=== PATIENT | male | born 1970 | race Caucasian/White ===

== ENCOUNTER 2018-05-02 14:51 | Observation (INO) | payer BC, SELFPAY ==
[2018-05-02 15:31] LABS: Absolute Lymphocytes (CBC) 3.3 K/uL (0.7-4.9); Absolute Monocytes 0.7 K/uL (0.1-1.3); Absolute Neutrophil 4.7 K/uL (1.8-8.0); Basophils % 0.7 % (0-1.3); Eosinophils % 4.3 % (0-4.4); Hematocrit 44.9 % (39.6-49.0); Lymphocytes % 35.9 % (15.3-44.8); MCH 31.8 pg (27.0-35.0); MCV 92.5 fL (80-100); MPV 9.5 fL (7.6-11.3); Monocytes % 7.5 % (3.3-12.3); RBC Red Blood Cell Count 4.85 M/uL (4.33-5.43)
--- NOTE | 2018-05-02 15:54 | RAD REPORT ---
EXAM DESCRIPTION: RAD - Chest Single View - 05/02/2018 3:38 pm CLINICAL HISTORY: Chest pain. COMPARISON: 07/27/2013 FINDINGS: Portable technique limits examination quality. The lungs are grossly clear. The heart is normal in size. No displaced fractures. IMPRESSION: No acute intrathoracic process suspected.
[2018-05-02 16:07] LABS: Albumin 4.3 g/dL (3.2-5.5); Bilirubin Total 0.7 mg/dL (0.3-1.2)
[2018-05-02] MEDS ORDERED: ASPIRIN 81 MG CHEWABLE TABLET ONE (16:28)
--- NOTE | 2018-05-02 17:01 | EKG ---
Test Date: 2018-05-02 Test Time: 15:03:27 Mirror Installer: ISHMAEL/Bridger MEASUREMENT RESULTS: Intervals: Rate: 78 NH: 150 QRSD: 88 QT: 370 QTc: 421 [place]: P: 64 NH: 150 QRS: 16 T: 54 INTERPRETIVE STATEMENTS: Normal sinus rhythm Normal ECG Compared to ECG 07/27/2013 23:38:10 Sinus bradycardia no longer present Electronically Signed On 05-02-18 16:59:58 CDT by Kaden Hicks
[2018-05-02] MEDS ORDERED: ONDANSETRON 4 MG/2 ML VIAL IV PRN (18:08)
[2018-05-02] MEDS ORDERED: ALBUTEROL 2.5 MG/3 ML NEB SOL NEB PRN (18:08)
[2018-05-02] MEDS ORDERED: NITROGLYCERIN 0.4 MG/TAB SL PRN (18:08)
[2018-05-02] MEDS ORDERED: IPRATROPIUM BROM 0.5MG/2.5ML NEB PRN (18:08)
[2018-05-02] MEDS ORDERED: ACETAMINOPHEN 500 MG TAB PO PRN (18:08)
--- NOTE | 2018-05-02 18:18 | P.HP ---
Certification for Inpatient Patient admitted to: Observation With expected LOS: <2 Midnights Patient will require the following post-hospital care: None Practitioner: I am a practitioner with admitting privileges, knowledge of patient current condition, hospital course, and medical plan of care. Services: Services provided to patient in accordance with Admission requirements found in Title 42 Section 412.3 of the Code of Federal Regulations Patient History Date of Service: 05/02/18 Primary Care Provider: Dr. Mayer([place], [place]) Reason for admission: Chest pain History of Present Illness: 48-year-old male presented emergency room with chest pain. Patient reported chest pain today. It started about 10:00 a.m.. It was a constant pressure. He was in the substernal region. No radiation noted. He denied any nausea, vomiting or lightheadedness. Patient with history of CAD with stent placed 6 years ago. He also has a history of hypertension and hyperlipidemia. He has not followed up with cardiology in over 5 years. In the ER, blood pressure stable. CBC, BMP unremarkable. Initial cardiac enzymes within normal range. Chest x-ray unremarkable. EKG showed no significant ST changes. Due to the nature of his symptoms and history patient was admitted for observation. When I saw the patient the ER, he was reluctant to stay but due to his risk factors he decided to stay Allergies No Known Allergies Allergy (Unverified 05/02/12 08:56) Home Medications: Aspirin 325 mg PO DAILY #0 tablet 05/04/12 Clopidogrel Bisulfate [Plavix*] 75 mg PO DAILY #0 tablet 05/04/12 Metoprolol Tartrate [Lopressor] 50 mg PO BID #0 tablet 05/04/12 Pravastatin [Pravachol*] 40 mg PO BEDTIME 07/27/13 - Past Medical/Surgical History Diabetic: No -: CAD, stent -: Hyperlipidemia -: HTN -: Tobacco abuse -: Alcohol use -: Right elbow (reconstruction) Psychosocial/ Personal History: The patient is . He has 2 children. He works construction - Family History Mother -: Cancer (Lymphoma) Father -: Cancer (Esophageal cancer) - Social History Smoking Status: Heavy Tobacco smoker (>10 cigarettes/day) Counseled patient to stop smoking for: less than 10 minutes Smoking therapy provided: Yes Patient receptive to therapy: Yes Alcohol use: Yes CD- Drugs: No Caffeine use: Yes Place of Residence: Home Review of Systems General: As per HPI Eyes: Unremarkable ENT: Unremarkable Respiratory: Unremarkable Cardiovascular: Chest Pain, As per HPI Gastrointestinal: Unremarkable Genitourinary: Unremarkable Musculoskeletal: Unremarkable Integumentary: Unremarkable Neurological: Unremarkable Lymphatics: Unremarkable Physical Examination - Physical Exam General: Alert, In no apparent distress, Oriented x3, Cooperative HEENT: Atraumatic, Normocephalic, PERRLA, Mucous membr. moist/pink Neck: Supple, No Thyromegaly Respiratory: Clear to auscultation bilaterally, Normal air movement Cardiovascular: Normal pulses, Regular rate/rhythm Gastrointestinal: Normal bowel sounds, Soft and benign, Non-distended, No tenderness, No masses, No rebound, No guarding Musculoskeletal: No erythema, No tenderness, No warmth Integumentary: No tenderness/swelling, No erythema, No warmth, No cyanosis Neurological: Normal speech, Normal strength at 5/5 x4 extr, Normal tone, Normal affect Lymphatics: No axilla or inguinal lymphadenopathy - Studies Laboratory Data (last 24 hrs) 05/02/18 15:15: Sodium 138, Potassium 4.0, BUN 14, Creatinine 0.92, Glucose 108 , Magnesium 2.0, Total Bilirubin 0.7, AST 21, ALT 27, Alkaline Phosphatase 80 05/02/18 15:15: B-Natriuretic Peptide 52 05/02/18 15:15: WBC 9.1, Hgb 15.4, Hct 44.9, Plt Count 189 Assessment and Plan - Problems (Diagnosis) (1) Chest pain Current Visit: Yes Status: Acute Plan: Will monitor cardiac enzymes. Will check echocardiogram. Will keep the patient NPO as the patient will be evaluated by Cardiology. Patient may require cardiac evaluation. Previous stent placed 6 years ago. He has not followed up with Cardiology in over 5 years. Qualifiers: Chest pain type: unspecified Qualified Code(s): R07.9 - Chest pain, unspecified (2) Hypertension Current Visit: Yes Status: Chronic Plan: Will continue with medication. Qualifiers: Hypertension type: essential hypertension Qualified Code(s): I10 - Essential (primary) hypertension (3) Hyperlipidemia Current Visit: Yes Status: Chronic Plan: Continue with medication. Will check fasting lipid panel. Qualifiers: Hyperlipidemia type: unspecified Qualified Code(s): E78.5 - Hyperlipidemia , unspecified (4) CAD (coronary artery disease) Current Visit: Yes Status: Chronic Plan: Will continue with his Plavix. DVT prophylaxis also started. (5) Tobacco abuse Current Visit: Yes Status: Chronic Plan: Will provide nicotine patch. Cessation education provided. (6) Alcohol use Current Visit: Yes Status: Chronic Plan: Cessation education provided. Discharge Plan: Home Plan to discharge in: 24 Hours - Advance Directives Does patient have a Living Will: No Does patient have a Durable POA for Healthcare: No - Code Status/Comfort Care Code Status Assessed: Yes Time Spent Managing Pts Care (In Minutes): 55
--- NOTE | 2018-05-02 18:29 | ER ---
Nurse's Notes [facility] Name: Zeinab Hyde Age: 48 yrs Sex: Male : 1970 Arrival Date: 05/02/2018 Time: 14:55 Bed 4 Private MD: None, None Diagnosis: Other chest pain Presentation: 05/02 15:02 Presenting complaint: Patient states: started having midsternal CP this morning around iw 10, described as indigestion, pressure, constant, not radiating, has hx of DE X 6 years ago, also has numbness to right side of face since Wednesday. Transition of care: patient was not received from another setting of care. Onset of symptoms was May 02, 2018. Risk Assessment: Do you want to hurt yourself or someone else? Patient reports no desire to harm self or others. Initial Sepsis Screen: Does the patient meet any 2 criteria? No. Patient's initial sepsis screen is negative. Does the patient have a suspected source of infection? No. Patient's initial sepsis screen is negative. Care prior to arrival: None. 15:02 Method Of Arrival: Wheelchair iw 15:02 Acuity: KAM 2 iw Historical: - Allergies: 16:46 No Known Allergies; ph - PMHx: 16:46 Hypertension; Myocardial infarction; ph - PSHx: 16:46 Heart stents; ph - Immunization history:: Adult Immunizations unknown. - Social history:: Smoking status: Patient uses tobacco products, smokes one pack cigarettes per day. - Ebola Screening: : No symptoms or risks identified at this time. Screenin:49 Abuse screen: Denies threats or abuse. Denies injuries from another. Nutritional ph screening: No deficits noted. Tuberculosis screening: No symptoms or risk factors identified. Fall Risk None identified. Assessment: 15:11 General: Appears in no apparent distress. uncomfortable, Behavior is calm, cooperative, ph appropriate for age, Denies fever, feeling ill. 15:11 Pain: Complains of pain in mid-sternal area Pain does not radiate. Quality of pain is ph described as pressure, Pain began 5 hours ago. Cardiovascular: Reports chest pain, Denies nausea, shortness of breath, Capillary refill < 3 seconds Patient's skin is warm and dry. Rhythm is sinus rhythm. Respiratory: Airway is patent Respiratory effort is even, unlabored, Respiratory pattern is regular, symmetrical, Denies shortness of breath. GI: No signs and/or symptoms were reported involving the gastrointestinal system. 16:46 Reassessment: Patient appears in no apparent distress at this time. Patient and/or ph family updated on plan of care and expected duration. Pain level reassessed. Patient is alert, oriented x 3, equal unlabored respirations, skin warm/dry/pink. pt resting quietly, awaiting reevaluation by ERP. Derm: Skin is intact, is healthy with good turgor, Skin is pink, warm \T\ dry. Musculoskeletal: Circulation, motion, and sensation intact. Range of motion: intact in all extremities. 18:09 Reassessment: Patient appears in no apparent distress at this time. Patient and/or ph family updated on plan of care and expected duration. Pain level reassessed. Patient is alert, oriented x 3, equal unlabored respirations, skin warm/dry/pink. Pt resting quietly, family at bedside, awaiting admit orders and room assignment, VSS. 18:53 Reassessment: Patient appears in no apparent distress at this time. No changes from hb previously documented assessment. Patient and/or family updated on plan of care and expected duration. Pain level reassessed. Patient is alert, oriented x 3, equal unlabored respirations, skin warm/dry/pink. 19:51 Reassessment: Patient aware of pending admission. Pain: Complains of pain in chest Pain lp1 currently is 2 out of 10 on a pain scale. Cardiovascular: Patient's skin is warm and dry. Respiratory: Respiratory effort is even, unlabored. Derm: Skin is pink, warm \T\ dry. Vital Signs: 15:10 BP 96 / 75; Pulse 80; Resp 16; Pulse Ox 98% on R/A; ph 16:30 BP 92 / 58; Pulse 63; Resp 16; Pulse Ox 100% on R/A; ph 18:10 BP 116 / 96; Pulse 60; Resp 16; Pulse Ox 99% on R/A; ph 19:35 BP 101 / 67; Pulse 69; Resp 18; Temp 99.0; Pulse Ox 100% on R/A; ak1 ED Course: 14:55 Patient arrived in ED. mr 14:55 None, None is Private Physician. mr 14:56 Peter Cavazos MD is Attending Physician. ps1 14:56 Flory Aguilar, RN is Primary Nurse. ph 15:04 Triage completed. iw 15:04 Initial lab(s) drawn, by me. Inserted saline lock: 22 gauge in left antecubital area, jb1 using aseptic technique. Blood collected. 15:08 EKG done, by body and frame technician. reviewed by Peter Cavazos MD. tc 15:39 XRAY Chest (1 view) In Process Unspecified. EDMS 15:40 X-ray completed. Portable x-ray completed in exam room. Patient tolerated procedure kc2 well. 16:46 Arm band placed on. ph 16:50 No provider procedures requiring assistance completed. Patient maintains SpO2 ph saturation greater than 95% on room air. 16:50 Patient has correct armband on for positive identification. Placed in gown. Bed in low ph position. Call light in reach. Side rails up X 1. cafeteria monitor on. Pulse ox on. NIBP on. Warm blanket given. 18:27 Lamont Alfaro DO is Hospitalizing Provider. ps1 19:34 Patient admitted, IV remains in place. ak1 20:23 Primary Nurse role handed off by Flory Aguilar, BETINA rg2 20:26 Lea Higuera, RN is Primary Nurse. lp1 Administered Medications: 16:45 Drug: Aspirin 325 mg Route: PO; ph 19:52 Follow up: Response: No adverse reaction lp1 Outcome: 18:28 Decision to Hospitalize by Provider. ps1 19:34 Condition: stable ak1 19:34 Instructed on the need for admit. 20:10 Admitted to Tele accompanied by [facility], via wheelchair, room 422, with chart, Report lp1 called to BETINA Ngo 20:27 Patient left the ED. lp1 Signatures: Dispatcher [employer] EDMS Janes Kemp jb1 Luisito Kiser rg2 Karena Tian Irene, BETINA MOFFETT iw Lea Higuera RN RN lp1 Christine Garber, account engineer EKG Ttc Betsy Lyle RN RN ak1 Flory Aguilar, BETINA MOFFETT Jessica Alvarez RN RN hb Carr, Kelsie kc2 Peter Cavazos MD MD ps1 Corrections: (The following items were deleted from the chart) 15:17 15:11 General: Appears in no apparent distress. uncomfortable, Behavior is calm, ph cooperative, appropriate for age, ph
--- NOTE | 2018-05-02 18:29 | EDPHYS ---
Physician Documentation [facility] Name: Zienab Hyde Age: 48 yrs Sex: Male : 1970 Arrival Date: 05/02/2018 Time: 14:55 Bed 4 Private MD: None, None ED Physician Peter Cavazos HPI: 05/02 15:12 This 48 yrs old Male presents to ER via Wheelchair with complaints of Chest ps1 Pain. 15:12 The patient or guardian reports chest pain that is located primarily in the substernal ps1 area. Onset: at 10:00. The pain does not radiate. Associated signs and symptoms: Pertinent positives: right jaw face numbness. The chest pain is described as sharp, squeezing, stabbing. Duration: The patient or guardian reports a single episode, that is still ongoing, and unchanged. Historical: - Allergies: 16:46 No Known Allergies; ph - PMHx: 16:46 Hypertension; Myocardial infarction; ph - PSHx: 16:46 Heart stents; ph - Immunization history:: Adult Immunizations unknown. - Social history:: Smoking status: Patient uses tobacco products, smokes one pack cigarettes per day. - Ebola Screening: : No symptoms or risks identified at this time. ROS: 15:12 Constitutional: Negative for fever, chills, and weight loss, Eyes: Negative for injury, ps1 pain, redness, and discharge, Neck: Negative for injury, pain, and swelling. 15:12 Respiratory: Negative for shortness of breath, cough, wheezing, and pleuritic chest pain, Abdomen/GI: Negative for abdominal pain, nausea, vomiting, diarrhea, and constipation, MS/Extremity: Negative for injury and deformity, Skin: Negative for injury, rash, and discoloration, Neuro: Negative for headache, weakness, numbness, tingling, and seizure. 15:12 Cardiovascular: Positive for chest pain. Exam: 15:12 Constitutional: This is a well developed, well nourished patient who is awake, alert, ps1 and in no acute distress. Head/Face: Normocephalic, atraumatic. Eyes: Pupils equal round and reactive to light, extra-ocular motions intact. Lids and lashes normal. Conjunctiva and sclera are non-icteric and not injected. ENT: Nares patent. No nasal discharge, no septal abnormalities noted. Tympanic membranes are normal and external auditory canals are clear. Oropharynx with no redness, swelling, or masses, exudates, or evidence of obstruction, uvula midline. Mucous membranes moist. Chest/axilla: Normal chest wall appearance and motion. Nontender with no deformity. No lesions are appreciated. Cardiovascular: Regular rate and rhythm. No gallops, murmurs, or rubs. Normal PMI, no JVD. No pulse deficits. Respiratory: Lungs have equal breath sounds bilaterally, clear to auscultation and percussion. No rales, rhonchi or wheezes noted. No increased work of breathing, no retractions or nasal flaring. Abdomen/GI: Soft, non-tender, with normal bowel sounds. No distension or tympany. No guarding or rebound. No evidence of tenderness throughout. Skin: Warm, dry with normal turgor. Normal color with no rashes, no lesions, and no evidence of cellulitis. MS/ Extremity: Pulses equal, no cyanosis. Neurovascular intact. Full, normal range of motion. Neuro: Awake and alert, GCS 15, oriented to person, place, time, and situation. Cranial nerves II-XII grossly intact. Sensory grossly intact. Vital Signs: 15:10 BP 96 / 75; Pulse 80; Resp 16; Pulse Ox 98% on R/A; ph 16:30 BP 92 / 58; Pulse 63; Resp 16; Pulse Ox 100% on R/A; ph 18:10 BP 116 / 96; Pulse 60; Resp 16; Pulse Ox 99% on R/A; ph 19:35 BP 101 / 67; Pulse 69; Resp 18; Temp 99.0; Pulse Ox 100% on R/A; ak1 MDM: 15:11 Patient medically screened. ps1 18:28 Data reviewed: vital signs, nurses notes, lab test result(s), EKG, radiologic studies. ps1 05/02 15:06 Order name: CBC with Diff; Complete Time: 15:48 ps1 05/02 15:06 Order name: BNP; Complete Time: 15:58 ps1 05/02 15:06 Order name: Magnesium; Complete Time: 16:10 ps1 05/02 15:06 Order name: Troponin (emerg Dept Use Only); Complete Time: 15:58 ps1 05/02 15:06 Order name: CMP; Complete Time: 16:10 ps1 06/04 18:13 Order name: Urinalysis EDMS 05/02 18:13 Order name: Basic Metabolic Panel EDMS 05/02 18:13 Order name: Basic Metabolic Panel EDMS 05/02 18:13 Order name: Basic Metabolic Panel EDMS 05/02 18:13 Order name: Basic Metabolic Panel EDMS 05/02 18:13 Order name: CBC with Automated Diff EDMS / 18:13 Order name: CBC with Automated Diff EDMS / 18:13 Order name: CBC with Automated Diff EDMS / 18:13 Order name: CBC with Automated Diff EDMS / 18:13 Order name: CKMB Creatine Kinase MB EDMS 05/02 18:13 Order name: CKMB Creatine Kinase MB EDMS 05/02 18:13 Order name: CKMB Creatine Kinase MB EDMS 05/02 18:13 Order name: Creatine Phosphokinase EDMS 05/02 18:13 Order name: Creatine Phosphokinase EDMS 05/02 18:13 Order name: Creatine Phosphokinase EDMS 05/02 18:13 Order name: Lipid Profile EDMS 05/02 18:13 Order name: Lipid Profile EDMS / 18:13 Order name: Magnesium EDMS / 18:13 Order name: Magnesium EDMS 05/02 18:13 Order name: Magnesium EDMS / 18:13 Order name: Magnesium EDMS / 18:13 Order name: Troponin I EDMS 05/02 18:13 Order name: Troponin I EDMS 05/02 18:13 Order name: Troponin I EDMS 05/02 18:13 Order name: Thyroid Stimulating Hormone EDMS / 15:06 Order name: XRAY Chest (1 view); Complete Time: 15:58 ps1 05/02 15:06 Order name: EKG; Complete Time: 15:06 ps1 05/02 15:06 Order name: Cardiac monitoring; Complete Time: 15:38 ps1 05/02 15:06 Order name: EKG - Nurse/Tech; Complete Time: 15:38 ps1 05/02 15:06 Order name: IV Saline Lock; Complete Time: 15:38 ps1 05/02 15:06 Order name: Labs collected and sent; Complete Time: 15:38 ps1 05/02 15:06 Order name: O2 Per Protocol; Complete Time: 15:38 ps1 05/02 15:06 Order name: O2 Sat Monitoring; Complete Time: 15:38 ps1 05/02 18:13 Order name: CONS Physician Consult EDTX 05/02 18:13 Order name: NPO EDTX 05/02 18:13 Order name: Echo with Doppler EDTX 05/02 18:13 Order name: Thyroid Stimulating Hormone EDTX 05/02 18:29 Order name: Diet Heart Healthy; Complete Time: 18:30 jb1 Administered Medications: 16:45 Drug: Aspirin 325 mg Route: PO; ph 19:52 Follow up: Response: No adverse reaction lp1 Disposition: 05/02/18 18:28 Hospitalization ordered by Lamont Alfaro for Observation. Preliminary diagnosis is Other chest pain. - Bed requested for Telemetry/MedSurg (observation). - Status is Observation. lp1 - Condition is Stable. - Problem is new. - Symptoms are unchanged. UTI on Admission? No Signatures: Dispatcher [employer] EDLatesha Charles RN RN kl Pena, Laura, RN RN lp1 Flory Aguilar RN RN Peter Cavazos MD MD ps1 Corrections: (The following items were deleted from the chart) 19:21 18:28 Hospitalization Ordered by Lamont Alfaro DO for Observation. Preliminary kl diagnosis is Other chest pain. Bed requested for Telemetry/MedSurg (observation). Status is Observation. Condition is Stable. Problem is new. Symptoms are unchanged. UTI on Admission? No. ps1 20:27 19:21 05/02/2018 18:28 Hospitalization Ordered by Lamont Alfaro DO for Observation. lp1 Preliminary diagnosis is Other chest pain. Bed requested for Telemetry/MedSurg (observation). Status is Observation. Condition is Stable. Problem is new. Symptoms are unchanged. UTI on Admission? No. kl
[2018-05-02] MEDS ORDERED: ATORVASTATIN 80 MG TAB PO SCH (21:00)
[2018-05-03 01:14] VITALS: BMI 26.4
[2018-05-03 02:33] LABS: CKMB Creatine Kinase MB 0.7 ng/ml (0.3-4.0)
[2018-05-03 05:40] LABS: Urine Appearance CLEAR; Urine Bilirubin NEGATIVE (NEG); Urine Blood NEGATIVE (NEG); Urine Color YELLOW; Urine Glucose NEGATIVE (NEG); Urine Protein NEGATIVE (NEG); Urine Specific Gravity 1.015 (1.005-1.030)
[2018-05-03 05:41] LABS: Urine Microscopic Reflex NO UMIC
[2018-05-03] MEDS ORDERED: METOPROLOL TAR 25 MG TAB PO SCH (06:00)
[2018-05-03] MEDS ORDERED: PANTOPRAZOLE 40MG TABLET PO SCH (06:30)
[2018-05-03 06:37] LABS: Absolute Lymphocytes (CBC) 3.4 K/uL (0.7-4.9); Absolute Monocytes 0.7 K/uL (0.1-1.3); Absolute Neutrophil 4.9 K/uL (1.8-8.0); Basophils % 0.5 % (0-1.3); Eosinophils % 4.5 % (0-4.4); Hematocrit 41.1 % (39.6-49.0); Lymphocytes % 35.8 % (15.3-44.8); MCH 31.8 pg (27.0-35.0); MCV 92.7 fL (80-100); MPV 9.7 fL (7.6-11.3); Monocytes % 7.6 % (3.3-12.3); RBC Red Blood Cell Count 4.43 M/uL (4.33-5.43)
[2018-05-03 07:16] LABS: BUN Blood Urea Nitrogen 12 mg/dL (6-20); Bicarbonate 27 mEq/L (21-31); Glucose Level 126 mg/dL (65-120); HDL Cholesterol 31 mg/dL (27-67); LDL Cholesterol, Calculated 47 (<130); Potassium 4.6 mEq/L (3.6-5.0); Sodium Level 139 mEq/L (135-145); Thyroid Stimulating Hormone 3.05 uIU/mL (0.34-5.60)
[2018-05-03] MEDS ORDERED: REGADENOSON 0.4 MG/5 ML SYR IV ONE (07:50)
[2018-05-03] MEDS ORDERED: NICOTINE 21 MG/PAT TD SCH (09:00)
[2018-05-03] MEDS ORDERED: ENOXAPARIN 40 MG/0.4 ML SQ SCH (09:00)
[2018-05-03] MEDS ORDERED: CLOPIDOGREL 75 MG TABLET PO SCH (09:00)
[2018-05-03] MEDS ORDERED: ASPIRIN EC 81 MG TAB PO SCH (09:00)
--- NOTE | 2018-05-03 10:39 | P.DS ---
Admission Date: 05/02/18 Discharge Date: 05/03/18 Primary Care Provider: Dr. Mayer([place], [place]) Disposition: ROUTINE DISCHARGE Discharge Condition: GOOD Reason for Admission: Chest pain Consultations: Cardiology-Dr. Hicks/Dr. Brewster Procedures: Cardiac stress test: No stress-induced ischemia noted. Ejection fraction 48% - Problems (1) Chest pain Onset Date: 05/03/18 Current Visit: Yes Status: Acute Qualifiers: Chest pain type: unspecified Qualified Code(s): R07.9 - Chest pain, unspecified (2) Hyperlipidemia Onset Date: 05/03/18 Current Visit: Yes Status: Chronic Qualifiers: Hyperlipidemia type: unspecified Qualified Code(s): E78.5 - Hyperlipidemia , unspecified (3) CAD (coronary artery disease) Onset Date: 05/03/18 Current Visit: Yes Status: Chronic Qualifiers: Coronary Disease-Associated Artery/Lesion type: unspecified vessel or lesion type [place] vs. transplanted heart: unspecified whether [place] or transplanted heart Associated angina: angina presence unspecified Qualified Code(s): I25.10 - Atherosclerotic heart disease of [place] coronary artery without angina pectoris (4) Tobacco abuse Onset Date: 05/03/18 Current Visit: Yes Status: Chronic (5) Alcohol use Onset Date: 05/03/18 Current Visit: Yes Status: Chronic (6) GERD (gastroesophageal reflux disease) Current Visit: Yes Status: Suspected Qualifiers: Esophagitis presence: esophagitis presence not specified Qualified Code(s) : K21.9 - Gastro-esophageal reflux disease without esophagitis Brief History of Present Illness: 48-year-old male presented emergency room with chest pain. Patient reported chest pain today. It started about 10:00 a.m.. It was a constant pressure. He was in the substernal region. No radiation noted. He denied any nausea, vomiting or lightheadedness. Patient with history of CAD with stent placed 6 years ago. He also has a history of hypertension and hyperlipidemia. He has not followed up with cardiology in over 5 years. In the ER, blood pressure stable. CBC, BMP unremarkable. Initial cardiac enzymes within normal range. Chest x-ray unremarkable. EKG showed no significant ST changes. Due to the nature of his symptoms and history patient was admitted for observation. When I saw the patient the ER, he was reluctant to stay but due to his risk factors he decided to stay Hospital Course: Patient did well in the course of his stay. Chest pain resolved. Cardiac enzymes unremarkable. Patient evaluated by Cardiology. Cardiology recommended cardiac stress test. Cardiac stress test showed no stress-induced ischemia. Ejection fraction 48%. At discharge patient will continue with Plavix 75 mg 1 pill daily. Recommendation is for the patient follow up with cardiology as an outpatient to further monitor. Patient has hyperlipidemia. Lipid panel remains within normal range. LDL 47. At discharge patient will continue with Lipitor 80 mg daily. Patient has history of tobacco and alcohol use. Tobacco and alcohol cessation education will be provided. Patient may have underlying GERD. Recommendation is for the patient to continue with Protonix 40 mg 1 pill once daily. Patient may benefit with GI evaluation as an outpatient. Vital Signs/Physical Exam: Temp Pulse Resp BP Pulse Ox 98 F 66 12 107/74 95 05/03/18 04:00 05/03/18 06:00 05/03/18 04:00 05/03/18 06:00 05/03/18 04:00 General: Alert, In no apparent distress, Oriented x3, Cooperative HEENT: Atraumatic Neck: Supple Respiratory: Clear to auscultation bilaterally, Normal air movement Cardiovascular: Normal pulses, Regular rate/rhythm Gastrointestinal: Normal bowel sounds, Soft and benign, Non-distended, No tenderness, No masses, No rebound, No guarding Musculoskeletal: No erythema, No tenderness, No warmth Integumentary: No tenderness/swelling, No erythema, No warmth, No cyanosis Neurological: Normal speech, Normal strength at 5/5 x4 extr, Normal tone, Normal affect Laboratory Data at Discharge: WBC 9.5 K/uL (4.3-10.9) 05/03/18 05:36 Hgb 14.1 g/dL (13.6-17.9) 05/03/18 05:36 Hct 41.1 % (39.6-49.0) 05/03/18 05:36 Plt Count 175 K/uL (152-406) 05/03/18 05:36 Sodium 139 mEq/L (135-145) 05/03/18 05:36 Potassium 4.6 mEq/L (3.6-5.0) 05/03/18 05:36 BUN 12 mg/dL (6-20) 05/03/18 05:36 Creatinine 0.87 mg/dL (0.61-1.24) 05/03/18 05:36 Glucose 126 mg/dL (65-120) H 05/03/18 05:36 Magnesium 2.0 mg/dL (1.8-2.5) 05/03/18 05:36 Total Bilirubin 0.7 mg/dL (0.3-1.2) 05/02/18 15:15 AST 21 IU/L (10-42) 05/02/18 15:15 ALT 27 IU/L (10-60) 05/02/18 15:15 Alkaline Phosphatase 80 IU/L (42-121) 05/02/18 15:15 Troponin I < 0.03 ng/mL (<0.03) 05/03/18 01:24 B-Natriuretic Peptide 52 pg/ml (<=100) 05/02/18 15:15 Triglycerides 53 mg/dL (35-160) 05/03/18 05:36 Cholesterol 89 mg/dL (<200) 05/03/18 05:36 HDL Cholesterol 31 mg/dL (27-67) 05/03/18 05:36 Cholesterol/HDL Ratio 2.87 05/03/18 05:36 Home Medications: Atorvastatin Calcium [Lipitor] 80 mg PO BEDTIME 05/02/18 Clopidogrel Bisulfate [Plavix*] 75 mg PO BEDTIME 05/02/18 Nitroglycerin [Nitrostat*] 0.4 mg SL UD PRN #30 tab 05/03/18 Pantoprazole [Protonix Tab*] 40 mg PO DAILYAC #30 tab 05/03/18 New Medications: Nitroglycerin [Nitrostat*] 0.4 mg SL UD PRN #30 tab PRN Reason: Chest Pain Pantoprazole [Protonix Tab*] 40 mg PO DAILYAC #30 tab Patient Discharge Instructions: 1. Patient will need a follow up with his PCP in 1 week to follow up this hospitalization. 2. Patient presented with chest pain. Cardiac enzymes unremarkable. Patient seen and evaluated by Cardiology. Cardiac stress test done. It showed no stress-induced ischemia. Ejection fraction 48%. At discharge patient will continue with Plavix 75 mg 1 pill once daily. Recommendation is for the patient follow up with cardiology in 2-4 weeks to monitor his progress. 3. Patient has hyperlipidemia. Patient will continue with Lipitor 80 mg 1 pill once daily. 4. Patient may have underlying GERD. At discharge patient will continue with Protonix 40 mg 1 pill once daily. Patient may benefit with GI evaluation as an outpatient. 5. Tobacco and alcohol cessation education will be provided. This will need to be encouraged by his PCP. Diet: AHA Activity: Ad cheli Time spent managing pt's care (in minutes): 55
[2018-05-03 11:26] LABS: CKMB Creatine Kinase MB 0.6 ng/ml (0.3-4.0)
--- NOTE | 2018-05-03 11:56 | RAD REPORT ---
EXAM DESCRIPTION: NM - Rest Stress Cardiac Imaging - 05/03/2018 11:51 am CLINICAL HISTORY: Chest pain. COMPARISON: None. TECHNIQUE: The patient was administered approximately 10mCi of Tc 99m Sestamibi prior to resting SPE CT imaging of the heart. The patient was then administered approximately 30 mCi of Tc 99m Sestamibi f ollowing exercise or pharmacologic stress. Multiplanar SPECT images were reviewed. FINDINGS: No stress induced ischemic defect is seen to suggest stress induced ischemia. No fixed def ect is seen to suggest hibernating myocardium or scarred myocardium. The end diastolic volume is 117 ml, the end systolic volume is 61 ml, and the ejection fraction is 48 %. IMPRESSION: No stress induced ischemia.
[2018-05-03 13:20] VITALS: O2SAT 99
[2018-05-03 13:46] VITALS: BP 127/68; TEMP 97.4
--- NOTE | 2018-05-03 14:28 | TREADPHA ---
DX: CHEST PAIN Date of Study: 05/03/2018 Ht: 5 8 Wt: 174 lb 0 oz Consulting Physician: CHRISTOPHER MEDICATIONS: TYLENOL, ASPIRIN, PLAVIX, LIPITOR, PROVENTIL, LOVENOX HISTORY: 48 YEAR OLD MALE HERE FOR CHEST PAIN. HISTORY OF HYPERTENSION AND MYOCARDIAL INFARCTION. PHYSICIAL EXAMINATION: RESTING B.P.: 105/58 RESTING H.R.: 56 RESTING EKG: SINUS BRADYCARDIA PROTOCOL: LEXISCAN EXERCISE TIME: 3:30 B.P. AT [place] STRESS: 93/968 IMPRESSION: LEXISCAN STRESS TEST PERFORMED. CARDIOLITE INJECTED PER PROTOCOL. NO ARRHYTHMIAS NOTED. DENIES ANY CHEST PAIN. SEE NUCLEAR MEDICINE REPORT.
--- NOTE | 2018-05-03 14:41 | ECHO ---
HEIGHT: 5 ft 8 in WEIGHT: 174 lb 0 oz DATE OF STUDY: 05/03/[address]: 2-DIMENSIONAL: YES M.MODE: YES DOPPLER: YES COLOR FLOW: YES TDS: NO PORTABLE: NO DEFINITY: NO BUBBLE STUDY: NO DIAGNOSIS: CHEST PAIN. CARDIAC HISTORY: CATHERIZATION: YES SURGERY: NO PROSTHETIC VALVE: NO PACEMAKER: NO MEASUREMENTS (cm) DIASTOLIC (NORMALS) SYSTOLIC (NORMALS) IVSd 1.0 (0.6-1.2) LA Diam 3.6 (1.9-4.0) LVEF 49% LVIDd 4.3 (3.5-5.7) LVIDs 3.2 (2.0-3.5) %FS 25% LVPWd 0.9 (0.6-1.2) Ao Diam 2.9 (2.0-3.7) 2 DIMENSIONAL ASSESSMENT: RIGHT ATRIUM: NORMAL LEFT ATRIUM: NORMAL RIGHT VENTRICLE: NORMAL LEFT VENTRICLE: NORMAL SIZE TRICUSPID VALVE: NORMAL MITRAL VALVE: NORMAL PULMONIC VALVE: NORMAL AORTIC VALVE: NORMAL PERICARDIAL EFFUSION: NONE AORTIC ROOT: NORMAL LEFT VENTRICULAR WALL MOTION: MILD GLOBAL HYPOKINESIS. DOPPLER/COLOR FLOW: MILD TRICUSPID REGURGITATION. COMMENTS: MILD TRICUSPID REGURGITATION, NORMAL RIGHT VENTRICULAR SYSTOLIC PRESSURE. MILD GLOBAL HYPOKINESIS. NO EFFUSION. TECHNOLOGIST: CLARISA VIRGEN
--- NOTE | 2018-05-03 19:19 | CON ---
Date of Consultation: 05/03/[address] to Dr. Alfaro' service on 05/02/2018. I saw the patient on 05/03/2018. Reason For Consultation: Chest pain. History Of Present Illness: Mr. Santos is a 48-year-old male, who has a history of CAD status post stent in April 2012. He has a history of dyslipidemia. We had not seen him for followup partially. He came in with atypical chest pain, sharp, stabbing, pleuritic type. No nausea, vomiting, diaphore sis, PND, orthopnea, pedal edema, palpitation, or syncope. Workup so far including laboratory evalua tion, EKG, and chest x-ray are normal. Allergies: NONE. Review of Systems: Negative. Social History: Negative. Family History: Negative. Medications: At home include Lipitor and Plavix. Physical Examination: Vital Signs: Stable. He is afebrile. HEENT: Negative. Neck: Supple without any bruit, lymphadenopathy, JVD, or thyromegaly. Chest: Clear to auscultation and percussion. Cardiac: Revealed a regular rhythm and rate without any murmurs, gallops, or rubs. Abdomen: Benign. Extremities: Revealed no clubbing, cyanosis, or edema. Diagnostic Data: As stated earlier. Impression And Plan: Atypical chest pain in a patient with history of coronary artery disease and dy slipidemia. I believe the stress test and echocardiogram are reasonable that we have already been or dered still pending. We will see what they show before making any final decisions. Case was discuss ed with Dr. Alfaro. AVIS/CÉSAR Voice ID: [id number] Report ID: [id number]
== END 2018-05-03 15:15 | disposition home or self-care (01) ==
LOC: ER 14:51 → ERHOLD 18:08 → 4TH 20:17
PROVIDERS: ADMIT Family Medicine; ATTEND Family Medicine
DX: R07.9 Chest pain, unspecified (principal); I10 Essential (primary) hypertension; I25.10 Atherosclerotic heart disease of native coronary artery without angina pectoris; E78.5 Hyperlipidemia, unspecified; F17.210 Nicotine dependence, cigarettes, uncomplicated; Z72.89 Other problems related to lifestyle; Z95.5 Presence of coronary angioplasty implant and graft
CPT/HCPCS: 36415; 71045; 78452; 80048; 80053; 80061; 81003; 82550; 82553; 83735; 83880; 84443; 84484; 85025; 93005; 93017; 93306; 99285; A9500; G0378; J1650; J2785